=== PATIENT | female | born 1965 | race Caucasian/White ===

== ENCOUNTER → 2017-04-09 | Outpatient (CLI) | payer OTHER | LOC: FIMAGING 09:12 | PROVIDERS: ATTEND Obstetrics & Gynecology | DX: Z12.31 Encounter for screening mammogram for malignant neoplasm of breast (principal) | CPT/HCPCS: G0202 ==

== ENCOUNTER → 2017-10-28 | Outpatient (CLI) | payer OTHER | LOC: FIMAGING 08:12 | PROVIDERS: ATTEND Obstetrics & Gynecology | DX: N93.9 Abnormal uterine and vaginal bleeding, unspecified (principal); N85.4 Malposition of uterus ==